=== PATIENT | female | born 1980 | race Caucasian/White ===

== ENCOUNTER 2018-01-15 18:37 | Emergency (ER) | payer OTHER ==
--- OUTSIDE RECORDS SUMMARY | 2018-01-15 18:39 | XMS REPORT ---
:1980 Author Organization eClinicalWorks Care Team Providers Name Role Phone Sowmya Schroeder Provider Role Unavailable Allergies, Adverse Reactions, Alerts Substance Reaction Event Type Augmentin stomach upset Drug Allergy Problems Problem Type Condition Code Onset Dates Condition Status Problem Migraine headache G43.909 Active Problem Sinus problem J34.9 Active Problem Asthma J45.909 Active Assessment Migraine headache G43.909 Active Assessment Bilateral carpal tunnel syndrome G56.03 Active Problem Fever blister B00.1 Active Problem Bilateral carpal tunnel syndrome G56.03 Active Medications Medication Code Code Instructions Start End Status Dosage System Date Date Tramadol HCl [facility] 59474759244 50 MG Orally Active 1 tablet every 6 hrs as needed Triamcinolone & NDC 0 0.025 % June Active 1 Emollient Externally 2017 Twice a day Diclofenac [facility] 65879598308 50 MG Orally Active 1 tablet Potassium Twice a day Acyclovir [facility] 87067505805 400 mg orally Active two tab BID Singulair [facility] 64152432540 10 MG Orally Active 1 tablet Once a day in the evening Butalbital-Aspiri [facility] 52125423869 50-325-40 MG September Active 1 capsule n-Caffeine Orally every 4 19, as needed hrs 2018 Results No Known Results Summary Purpose eClinicalWorks Submission
--- OUTSIDE RECORDS SUMMARY | 2018-01-15 18:39 | XMS REPORT ---
:1980 Author Organization eClinicalWorks Care Team Providers Name Role Phone Sowmya Schroeder Provider Role Unavailable Allergies, Adverse Reactions, Alerts Substance Reaction Event Type Augmentin stomach upset Drug Allergy Problems Problem Type Condition Code Onset Dates Condition Status Assessment Seasonal allergies J30.2 Active Assessment Chronic tension-type headache, G44.221 Active intractable Problem Seasonal allergies J30.2 Active Problem Sinus problem J34.9 Active Problem Chronic tension-type headache, G44.221 Active intractable Problem Asthma J45.909 Active Problem Fever blister B00.1 Active Problem Bilateral carpal tunnel syndrome G56.03 Active Medications Medication Code Code Instructions Start End Status Dosage System Date Date Diclofenac [facility] 67085803627 50 MG Orally Active 1 tablet Potassium Twice a day Amoxicillin [facility] 63723853704 875 MG Orally October Active 1 tablet every 12 hrs 2017 Flonase [facility] 09136282765 50 MCG/ACT August 27, Active 1 spray in Nasally Once a 2018 each nostril day Tramadol HCl [facility] 42328295980 50 MG Orally Active 1 tablet as every 6 hrs needed Singulair [facility] 72097338984 10 MG Orally Active 1 tablet in Once a day the evening Triamcinolone [facility] 29706993896 0.1 % August 08, Active 1 application Acetonide Externally 2018 to affected Twice a day area Ortho Tri-Cyclen [facility] 25599257236 0.18/0.215/0.25 August 08, Active 1 tablet Lo MG-25 MCG 2018 Orally Once a day Acyclovir ND 81547879164 400 mg orally Active two tab BID Rmfivqaaur-MNF-Q [facility] 92253519671 50-325-40 MG Nov 26Jan Active 1 capsule as affeine Orally every 6 2017 19, needed hours 2018 Results No Known Results Summary Purpose eClinicalWorks Submission
--- OUTSIDE RECORDS SUMMARY | 2018-01-15 18:39 | XMS REPORT ---
:1980 Author Organization eClinicalWorks Care Team Providers Name Role Phone Kyaw Mae Provider Role Unavailable Allergies No Known Allergies Problems Problem Type Condition Code Onset Dates Condition Status Assessment Migraine headache G43.909 Active Problem Sinus problem J34.9 Active Problem Fever blister B00.1 Active Problem Seasonal allergies J30.2 Active Problem Migraine headache G43.909 Active Assessment Seasonal allergies J30.2 Active Problem Bilateral carpal tunnel syndrome G56.03 Active Problem Asthma J45.909 Active Medications Medication Code Code Instructions Start End Status Dosage System Date Date Flonase [facility] 52538448543 50 MCG/ACT August 27, Active 1 spray in Nasally Once a 2018 each nostril day Triamcinolone [facility] 32309608518 0.1 % August 08, Active 1 application Acetonide Externally 2018 to affected Twice a day area Acyclovir [facility] 31694286743 400 mg orally Active two tab BID Loratadine-D [facility] 56103172396 5-120 MG Orally August 27September Active 1 tablet as 12HR every 12 hrs 2017 20, needed 2018 Diclofenac [facility] 93942192256 50 MG Orally Active 1 tablet Potassium Twice a day Singulair [facility] 57683964985 10 MG Orally Active 1 tablet in Once a day the evening Butalbital-Aspir [facility] 04491023901 50-325-40 MG September Active 1 capsule as in-Caffeine Orally every 4 19, needed hrs 2017 Ortho Tri-Cyclen [facility] 43900936638 0.18/0.215/0.25 August 08, Active 1 tablet Lo MG-25 MCG 2018 Orally Once a day Tramadol HCl ND 23596016195 50 MG Orally Active 1 tablet as every 6 hrs needed Results No Known Results Summary Purpose eClinicalWorks Submission
--- OUTSIDE RECORDS SUMMARY | 2018-01-15 18:39 | XMS REPORT ---
:1980 Author Organization eClinicalWorks Care Team Providers Name Role Phone Sowmya Schroeder Provider Role Unavailable Allergies, Adverse Reactions, Alerts Substance Reaction Event Type Augmentin stomach upset Drug Allergy Problems Problem Type Condition Code Onset Dates Condition Status Assessment Acute recurrent frontal sinusitis J01.11 Active Assessment Cough R05 Active Problem Sinus problem J34.9 Active Problem Fever blister B00.1 Active Problem Seasonal allergies J30.2 Active Problem Migraine headache G43.909 Active Problem Bilateral carpal tunnel syndrome G56.03 Active Problem Asthma J45.909 Active Medications Medication Code Code Instructions Start End Status Dosage System Date Date Ortho Tri-Cyclen [facility] 05293600430 0.18/0.215/0.25 August 08, Active 1 tablet Lo MG-25 MCG 2017 Orally Once a day Amoxicillin [facility] 61677922271 875 MG Orally October Active 1 tablet every 12 hrs 2017 Singulair [facility] 97637245646 10 MG Orally Active 1 tablet in Once a day the evening Tramadol HCl ND 95735894893 50 MG Orally Active 1 tablet as every 6 hrs needed Flonase ND 15764155580 50 MCG/ACT August 27, Active 1 spray in Nasally Once a 2018 each nostril day Triamcinolone [facility] 20085578624 0.1 % August 08, Active 1 application Acetonide Externally 2018 to affected Twice a day area Acyclovir ND 23846676175 400 mg orally Active two tab BID Diclofenac ND 34402450978 50 MG Orally Active 1 tablet Potassium Twice a day Results Name Result Date Reference Range Unit Abnormality Flag STREP A RAPID ----Result Neg [id number] Summary Purpose eClinicalWorks Submission
--- OUTSIDE RECORDS SUMMARY | 2018-01-15 18:39 | XMS REPORT ---
:1980 Author Organization eClinicalWorks Care Team Providers Name Role Phone Sowmya Schroeder Provider Role Unavailable Allergies, Adverse Reactions, Alerts Substance Reaction Event Type Augmentin stomach upset Drug Allergy Problems Problem Type Condition Code Onset Dates Condition Status Problem Migraine headache G43.909 Active Problem Sinus problem J34.9 Active Problem Asthma J45.909 Active Assessment Encounter for BCP ( control Z30.011 Active pills) initial prescription Assessment Eczema, unspecified type L30.9 Active Problem Fever blister B00.1 Active Problem Bilateral carpal tunnel syndrome G56.03 Active Medications Medication Code Code Instructions Start End Status Dosage System Date Date Butalbital-Aspir [facility] 48411211422 50-325-40 MG September Active 1 capsule as in-Caffeine Orally every 4 19, needed hrs [address] [facility] 97076599864 0.1 % August 08, Active 1 application Acetonide Externally 2018 to affected Twice a day area Diclofenac [facility] 62881345221 50 MG Orally Active 1 tablet Potassium Twice a day Singulair [facility] 01873294704 10 MG Orally Active 1 tablet in Once a day the evening Ortho Tri-Cyclen [facility] 64137722594 0.18/0.215/0.25 August 08, Active 1 tablet Lo MG-25 MCG 2018 Orally Once a day Acyclovir [facility] 80510335250 400 mg orally Active two tab BID Tramadol HCl [facility] 95047462454 50 MG Orally Active 1 tablet as every 6 hrs needed Results Name Result Date Reference Range Unit Abnormality Flag TEST URINE ----RESULTS N [id number] Summary Purpose eClinicalWorks Submission
--- NOTE | 2018-01-15 19:36 | EDPHYS ---
Physician Documentation [facility] Name: Julia Vargas Age: 37 yrs Sex: Female : 1980 Arrival Date: 01/15/2018 Time: 18:40 Bed 30 Private MD: Marley Schroeder ED Physician Noe Patel HPI: 01/15 19:32 This 37 yrs old Female presents to ER via Ambulatory with complaints of Pain rn With Urination. 19:32 The patient presents with urinary symptoms, dysuria, frequency, urgency. Onset: The rn symptoms/episode began/occurred 1 week(s) ago. Modifying factors: The symptoms are alleviated by nothing, the symptoms are aggravated by urinating. Associated signs and symptoms: The patient has no apparent associated signs or symptoms, Pertinent negatives: diarrhea, fever, vaginal bleeding. Severity of symptoms: At their worst the symptoms were mild, in the emergency department the symptoms are unchanged. The patient has not experienced similar symptoms in the past. Reports increased urinary frequency, urgency, no fever, not better with OTC yeast infection treatment, no abd pain. No diarrhea/vomiting/chills. States thinks has UTI, not able to get into pcp office due to her schedule. . 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 - Social history:: Smoking status: Patient/guardian denies using tobacco. - Ebola Screening: : Patient negative for fever greater than or equal to 101.5 degrees Fahrenheit, and additional compatible Ebola Virus Disease symptoms Patient denies exposure to infectious person Patient denies travel to an Ebola-affected area in the 21 days before illness onset No symptoms or risks identified at this time. - Family history:: not pertinent. - Hospitalizations: : No recent hospitalization is reported. ROS: 19:32 Constitutional: Negative for fever, chills, and weight loss, Eyes: Negative for injury, rn pain, redness, and discharge, Cardiovascular: Negative for chest pain, palpitations, and edema, Respiratory: Negative for shortness of breath, cough, wheezing, and pleuritic chest pain, Abdomen/GI: Negative for abdominal pain, nausea, vomiting, diarrhea, and constipation, Back: Negative for injury and pain, : Negative for injury, bleeding, discharge, and swelling, MS/Extremity: Negative for injury and deformity, Skin: Negative for injury, rash, and discoloration, Neuro: Negative for headache, weakness, numbness, tingling, and seizure. Exam: 19:32 Constitutional: This is a well developed, well nourished patient who is awake, alert, rn and in no acute distress. Eyes: Pupils equal round and reactive to light ENT: MMM Abdomen/GI: Soft, non-tender, with normal bowel sounds. No distension, No guarding or rebound. No evidence of tenderness throughout. Back: No spinal tenderness. No costovertebral tenderness. Full range of motion. Skin: Warm, dry with normal turgor. Normal color with no rashes, no lesions, and no evidence of cellulitis. MS/ Extremity: Pulses equal, no cyanosis. Neurovascular intact. Full, normal range of motion. Equal circumference. Neuro: Awake and alert, GCS 15, oriented to person, place, time, and situation. Motor strength 5/5 in all extremities. Sensory grossly intact. Vital Signs: 18:50 BP 127 / 76; Pulse 75; Resp 16; Temp 97.8; Pulse Ox 100% ; Weight 129.27 kg; Height 5 bp ft. 7 in. (170.18 cm); 19:48 BP 120 / 77; Pulse 77; Resp 18; Pulse Ox 100% on R/A; tl3 18:50 Body Mass Index 44.64 (129.27 kg, 170.18 cm) bp MDM: 19:04 Patient medically screened. rn 19:32 Differential diagnosis: urinary tract infection, urethritis, yeast infection, rn dehydration. Data reviewed: vital signs, nurses notes, lab test result(s), and as a result, I will discharge patient. Counseling: I had a detailed discussion with the patient and/or guardian regarding: the historical points, exam findings, and any diagnostic results supporting the discharge/admit diagnosis, lab results, the need for outpatient follow up, to return to the emergency department if symptoms worsen or persist or if there are any questions or concerns that arise at home. Special discussion: I discussed with the patient/guardian in detail that at this point there is no indication for admission to the hospital. It is understood, however, that if the symptoms persist or worsen the patient needs to return immediately for re-evaluation. 01/15 19:05 Order name: Urine Dipstick--Ancillary (enter results) mt 01/15 19:05 Order name: Urine --Ancillary (enter results) wv Administered Medications: No medications were administered Disposition: 01/15/18 19:35 Discharged to Home. Impression: Urethritis and urethral syndrome, Urinary tract infection, site not specified. - Condition is Stable. - Discharge Instructions: Urethritis, Adult, Urinary Tract Infection, Adult. - Prescriptions for Diflucan 150 mg Oral Tablet - take 1 tablet by ORAL route one time for 1 day; 1 tablet. Pyridium 200 mg Oral Tablet - take 1 tablet by ORAL route every 8 hours for 3 days; 9 tablet. Macrobid 100 mg Oral Capsule - take 1 capsule by ORAL route every 12 hours for 10 days; 20 capsule. - Medication Reconciliation Form, Thank You Letter, Antibiotic Education, Prescription Opioid Use form. - Follow up: Private Physician; When: As needed; Reason: Recheck today's complaints, Re-evaluation by your physician. - Problem is new. - Symptoms are unchanged. Signatures: Dispatcher [employer] EDMS Noe Patel MD MD rn Peltier, Brian, RN RN bp Lowrey, Tammy, RN RN tl3 Corrections: (The following items were deleted from the chart) 19:52 19:35 01/15/2018 19:35 Discharged to Home. Impression: Urethritis and urethral tl3 syndrome; Urinary tract infection, site not specified. Condition is Stable. Forms are Medication Reconciliation Form, Thank You Letter, Antibiotic Education, Prescription Opioid Use. Follow up: Private Physician; When: As needed; Reason: Recheck today's complaints, Re-evaluation by your physician. Problem is new. Symptoms are unchanged. rn
--- NOTE | 2018-01-15 19:36 | ER ---
Nurse's Notes [facility] Name: Julia Vargas Age: 37 yrs Sex: Female : 1980 Arrival Date: 01/15/2018 Time: 18:40 Bed 30 Private MD: Marley Schroeder Diagnosis: Urethritis and urethral syndrome;Urinary tract infection, site not specified Presentation: 01/15 18:49 Presenting complaint: Patient states: I THINK I'VE GOT A UTI. I THOUGHT IT WAS A YEAST bp INFECTION, BUT THE CREAM DIDN'T MAKE IT BETTER. Transition of care: patient was not received from another setting of care. Onset of symptoms was January 08, 2018. Risk Assessment: Do you want to hurt yourself or someone else? Patient reports no desire to harm self or others. Initial Sepsis Screen: Does the patient meet any 2 criteria? No. Patient's initial sepsis screen is negative. Does the patient have a suspected source of infection? No. Patient's initial sepsis screen is negative. Care prior to arrival: None. 18:49 Method Of Arrival: Ambulatory bp 18:49 Acuity: GILBERTO 4 bp Triage Assessment: 18:50 General: Appears in no apparent distress. comfortable, obese, Behavior is calm, bp cooperative, appropriate for age. Pain: Complains of pain in pelvis. 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 - Social history:: Smoking status: Patient/guardian denies using tobacco. - Ebola Screening: : Patient negative for fever greater than or equal to 101.5 degrees Fahrenheit, and additional compatible Ebola Virus Disease symptoms Patient denies exposure to infectious person Patient denies travel to an Ebola-affected area in the 21 days before illness onset No symptoms or risks identified at this time. - Family history:: not pertinent. - Hospitalizations: : No recent hospitalization is reported. Screenin:27 Abuse screen: Denies threats or abuse. Nutritional screening: No deficits noted. tl3 Tuberculosis screening: No symptoms or risk factors identified. Fall Risk None identified. Assessment: 19:27 General: Appears in no apparent distress. obese, well groomed, well developed, well tl3 nourished, Behavior is calm, cooperative, appropriate for age. Pain: Complains of pain in pelvis. Neuro: No deficits noted. Level of Consciousness is awake, alert, obeys commands, Oriented to person, place, time, situation, Appropriate for age. Cardiovascular: Patient's skin is warm and dry. Respiratory: Airway is patent Respiratory effort is even, unlabored, Respiratory pattern is regular, symmetrical, Breath sounds are clear bilaterally. GI: : Urine is clear. EENT: No signs and/or symptoms were reported regarding the EENT system. Derm: No signs and/or symptoms reported regarding the dermatologic system. Musculoskeletal: No signs and/or symptoms reported regarding the musculoskeletal system. 19:48 Reassessment: Patient appears in no apparent distress at this time. No changes from tl3 previously documented assessment. Patient and/or family updated on plan of care and expected duration. Pain level reassessed. Patient is alert, oriented x 3, equal unlabored respirations, skin warm/dry/pink. Vital Signs: 18:50 BP 127 / 76; Pulse 75; Resp 16; Temp 97.8; Pulse Ox 100% ; Weight 129.27 kg; Height 5 bp ft. 7 in. (170.18 cm); 19:48 BP 120 / 77; Pulse 77; Resp 18; Pulse Ox 100% on R/A; tl3 18:50 Body Mass Index 44.64 (129.27 kg, 170.18 cm) bp ED Course: 18:40 Patient arrived in ED. as 18:40 Marley Schroeder is Private Physician. as 18:50 Triage completed. bp 18:50 Arm band placed on right wrist. bp 19:04 Noe Patel MD is Attending Physician. rn 19:27 Darya Hagen, BRAYAN is Primary Nurse. tl3 19:27 Patient has correct armband on for positive identification. tl3 19:27 No provider procedures requiring assistance completed. Patient did not have IV access tl3 during this emergency room visit. Administered Medications: No medications were administered Outcome: 19:35 Discharge ordered by . rn 19:48 Discharged to home ambulatory. tl3 19:48 Condition: stable 19:48 Discharge instructions given to patient, Instructed on discharge instructions, follow up and referral plans. medication usage, Demonstrated understanding of instructions, follow-up care, medications, Prescriptions given X 3. 19:52 Patient left the ED. tl3 Signatures: Darlene Chavez Roman, MD MD rn Peltier, Brian, RN RN bp Lowrey, Tammy, RN RN tl3
[2018-01-15 19:53] LABS: Urine Blood TRACE (NEG); Urine Glucose NEGATIVE (NEG); Urine Protein NEGATIVE (NEG); Urine pH 5.5 (5.0-7.0)
== END 2018-01-15 19:52 | disposition home or self-care (01) ==
LOC: ER 18:37
DX: N39.0 Urinary tract infection, site not specified (principal); N34.3 Urethral syndrome, unspecified; Z88.1 Allergy status to other antibiotic agents
CPT/HCPCS: 81003; 81025; 99282

== ENCOUNTER 2018-03-18 19:00 | Observation (INO) | payer OTHER, SELFPAY ==
--- OUTSIDE RECORDS SUMMARY | 2018-03-18 19:03 | XMS REPORT ---
[...] End Status Dosage System Date Date Flonase [facility] 53321382218 50 MCG/ACT August 27, Active 1 spray in Nasally Once a 2018 each nostril day Triamcinolone [facility] 44687810601 0.1 % August 08, Active 1 application Acetonide Externally 2018 to affected Twice a day area Acyclovir [facility] 66389164325 400 mg orally Active two tab BID Loratadine-D [facility] 07089951928 5-120 MG Orally August 27September Active 1 tablet as 12HR every 12 hrs 2017 20, needed 2018 Diclofenac [facility] 42641168379 50 MG Orally Active 1 tablet Potassium Twice a day Singulair [facility] 66538677706 10 MG Orally Active 1 tablet in Once a day the evening Butalbital-Aspir [facility] 97462347896 50-325-40 MG September Active 1 capsule as in-Caffeine Orally every 4 19, needed hrs 2017 Ortho Tri-Cyclen [facility] 86288018033 0.18/0.215/0.25 August 08, Active 1 tablet Lo MG-25 MCG 2018 Orally Once a day Tramadol HCl ND 43486707236 50 MG Orally Active 1 tablet as every 6 hrs needed Results No Known Results Summary Purpose eClinicalWorks Submission
--- OUTSIDE RECORDS SUMMARY | 2018-03-18 19:03 | XMS REPORT ---
[...] End Status Dosage System Date Date Diclofenac [facility] 45184176788 50 MG Orally Active 1 tablet Potassium Twice a day Amoxicillin [facility] 15990261737 875 MG Orally October Active 1 tablet every 12 hrs 2017 Flonase [facility] 24592385887 50 MCG/ACT August 27, Active 1 spray in Nasally Once a 2018 each nostril day Tramadol HCl [facility] 31088962645 50 MG Orally Active 1 tablet as every 6 hrs needed Singulair [facility] 13218967088 10 MG Orally Active 1 tablet in Once a day the evening Triamcinolone [facility] 44649245406 0.1 % August 08, Active 1 application Acetonide Externally 2018 to affected Twice a day area Ortho Tri-Cyclen [facility] 86909683907 0.18/0.215/0.25 August 08, Active 1 tablet Lo MG-25 MCG 2018 Orally Once a day Acyclovir ND 24682960924 400 mg orally Active two tab BID Klnrtczaic-JSF-Q [facility] 54744678624 50-325-40 MG Nov 26Jan Active 1 capsule as affeine Orally every 6 2017 19, needed hours 2018 Results No Known Results Summary Purpose eClinicalWorks Submission
--- OUTSIDE RECORDS SUMMARY | 2018-03-18 19:03 | XMS REPORT ---
[...] End Status Dosage System Date Date Butalbital-Aspir [facility] 10247529006 50-325-40 MG September Active 1 capsule as in-Caffeine Orally every 4 19, needed hrs 2018 Triamcinolone [facility] 98015137419 0.1 % August 08, Active 1 application Acetonide Externally 2018 to affected Twice a day area Diclofenac [facility] 29796093751 50 MG Orally Active 1 tablet Potassium Twice a day Singulair [facility] 45079133727 10 MG Orally Active 1 tablet in Once a day the evening Ortho Tri-Cyclen [facility] 79513805694 0.18/0.215/0.25 August 08, Active 1 tablet Lo MG-25 MCG 2018 Orally Once a day Acyclovir [facility] 87795420784 400 mg orally Active two tab BID Tramadol HCl [facility] 23269685241 50 MG Orally Active 1 tablet as every 6 hrs needed Results Name Result Date Reference Range Unit Abnormality Flag TEST URINE ----RESULTS N [id number] Summary Purpose eClinicalWorks Submission
--- OUTSIDE RECORDS SUMMARY | 2018-03-18 19:03 | XMS REPORT ---
[...] Status Dosage System Date Date Tramadol HCl [facility] 95368973420 50 MG Orally Active 1 tablet every 6 hrs as needed Triamcinolone & NDC 0 0.025 % June Active 1 Emollient Externally 2017 Twice a day Diclofenac [facility] 66461040381 50 MG Orally Active 1 tablet Potassium Twice a day Acyclovir [facility] 45090708080 400 mg orally Active two tab BID Singulair [facility] 12826549031 10 MG Orally Active 1 tablet Once a day in the evening Butalbital-Aspiri [facility] 72155605745 50-325-40 MG September Active 1 capsule n-Caffeine Orally every 4 19, as needed hrs 2018 Results No Known Results Summary Purpose eClinicalWorks Submission
--- OUTSIDE RECORDS SUMMARY | 2018-03-18 19:03 | XMS REPORT ---
[...] Status Dosage System Date Date Ortho Tri-Cyclen [facility] [id number] 0.18/0.215/0.25 August 08, Active 1 tablet Lo MG-25 MCG 2017 Orally Once a day Amoxicillin [facility] [id number] 875 MG Orally October Active 1 tablet every 12 hrs 2017 Singulair [facility] 36417024139 10 MG Orally Active 1 tablet in Once a day the evening Tramadol HCl ND 20665672143 50 MG Orally Active 1 tablet as every 6 hrs needed Flonase ND 76341665519 50 MCG/ACT August 27, Active 1 spray in Nasally Once a 2018 each nostril day Triamcinolone [facility] 93141344016 0.1 % August 08, Active 1 application Acetonide Externally 2018 to affected Twice a day area Acyclovir ND 73095731656 400 mg orally Active two tab BID Diclofenac ND 87334122835 50 MG Orally Active 1 tablet Potassium Twice a day Results Name Result Date Reference Range Unit Abnormality Flag STREP A RAPID ----Result Neg [id number] Summary Purpose eClinicalWorks Submission
[2018-03-18] MEDS ORDERED: FAMOTIDINE 20 MG/2 ML VIAL IV ONE (19:47)
[2018-03-18] MEDS ORDERED: MORPHINE 4 MG/ML SYR ONE ×2 (19:47→20:48)
[2018-03-18] MEDS ORDERED: NA CHLORIDE 0.9% 1,000 ML ONE ×2 (19:47→21:06)
[2018-03-18] MEDS ORDERED: ONDANSETRON 4 MG/2 ML VIAL ONE (19:47)
[2018-03-18 19:54] LABS: Absolute Lymphocytes (CBC) 1.3 K/uL (0.7-4.9); Absolute Monocytes 0.7 K/uL (0.1-1.3); Absolute Neutrophil 9.1 K/uL (1.8-8.0); Basophils % 0.2 % (0-1.3); Eosinophils % 1.5 % (0-4.4); Hematocrit 37.6 % (36.0-45.0); Lymphocytes % 11.4 % (15.3-44.8); MCH 28.8 pg (27.0-35.0); MPV 9.4 fL (7.6-11.3); RBC Red Blood Cell Count 4.32 M/uL (3.86-4.86)
[2018-03-18 20:08] LABS: Protime INR 0.92
[2018-03-18 20:15] LABS: ALT/SGPT 17 U/L (12-78); AST/SGOT 11 U/L (15-37); Albumin 3.3 g/dL (3.4-5.0); Alkaline Phosphatase 64 U/L (45-117); BUN Blood Urea Nitrogen 13 mg/dL (7-18); Bicarbonate 24 mmol/L (21-32); Bilirubin Direct < 0.1 mg/dL (0-0.2); Bilirubin Total 0.2 mg/dL (0.2-1.0); Glucose Level 84 mg/dL (74-106); Lipase 69 U/L (73-393); Magnesium 1.9 mg/dL (1.8-2.4); NT PRO-BNP 207 pg/mL (<125); Potassium 3.7 mmol/L (3.5-5.1); Protein, Total 7.8 g/dL (6.4-8.2); Sodium Level 137 mmol/L (136-145); Troponin (Emerg Dept Use Only) < 0.02 ng/mL (0.0-0.045)
[2018-03-18 21:04] LABS: Urine Blood TRACE (NEG); Urine Glucose NEGATIVE (NEG); Urine Protein NEGATIVE (NEG); Urine Specific Gravity >1.030 (1.005-1.030); Urine pH 5.5 (5.0-7.0)
[2018-03-18] MEDS ORDERED: CIPROFLOXACIN 400mg IV 400 MG/200 ML BAG IV ONE (21:06)
[2018-03-18] MEDS ORDERED: METRONIDAZOLE 500mg IVPB 500 MG/100 ML BAG IV ONE (21:07)
--- NOTE | 2018-03-18 22:05 | RAD REPORT ---
EXAM DESCRIPTION: CT - Abdomen Pelvis W Contrast - 03/18/2018 9:41 pm CLINICAL HISTORY: Left upper quadrant pain, left lower quadrant pain, fever COMPARISON: None. TECHNIQUE: Biphasic, helical CT imaging of the abdomen and pelvis was performed following 100 ml non -ionic IV contrast. Oral contrast was given. All CT scans are performed using dose optimization technique as appropriate and may include automated exposure control or mA/KV adjustment according to patient size. FINDINGS: No suspicious findings in the lung bases. The liver, spleen, and pancreas show no suspicious findings. Gallbladder and biliary tree are also wi thout suspicious finding. Symmetric renal function is seen with no hydronephrosis or suspicious renal mass. No pyelonephritis o r acute renal parenchymal process. No urinary bladder abnormality. Uterus and ovaries within normal l imits. No dilated bowel loops or bowel wall thickening. No appendicitis findings. Small right lower quadrant mesenteric lymph nodes are present. No free air, free fluid or inflammatory stranding. No mass or b ulky lymphadenopathy. Patient has a small fat only umbilical hernia. No adrenal abnormality. No suspicious bony findings. IMPRESSION: Contrast enhanced CT abdomen and pelvis showing no significant or suspicious finding. A few small mesenteric lymph nodes are present in the right lower quadrant. No bulky lymphadenopathy. Significance of the lymph node is doubtful given the patient's left-sided symptoms.
--- NOTE | 2018-03-18 22:47 | ER ---
Nurse's Notes [facility] Name: Julia Vargas Age: 37 yrs Sex: Female : 1980 Arrival Date: 03/18/2018 Time: 19:03 Bed 26 Private MD: Marley Schroeder Diagnosis: Abdominal tenderness-intractable;Vomiting Presentation: 03/18 19:05 Presenting complaint: Patient states: i have this sharp pain on the L side of my hj abdomen; denies nausea and vomiting; denies diarrhea; reports fever and chills; pain is 10/10;. Transition of care: patient was not received from another setting of care. Onset of symptoms was March 18, 2018. Risk Assessment: Do you want to hurt yourself or someone else? Patient reports no desire to harm self or others. Initial Sepsis Screen: Does the patient meet any 2 criteria? No. Patient's initial sepsis screen is negative. Does the patient have a suspected source of infection? No. Patient's initial sepsis screen is negative. Care prior to arrival: None. 19:05 Method Of Arrival: Ambulatory 19:05 Acuity: GILBERTO 3 Triage Assessment: 19:07 General: Appears in no apparent distress. uncomfortable, obese, Behavior is calm, hj cooperative, appropriate for age. Pain: Complains of pain in abdomen. GI: Reports lower abdominal pain, upper abdominal pain. DIRECTOR STRATEGY: 19:08 LMP N/A - control method Historical: - Allergies: 19:07 Augmentin; hj - Home Meds: 19:07 Clair Oral [Active]; Singulair Oral [Active]; hj - PMHx: 19:07 allergy; - PSHx: 19:07 None; hj - Immunization history:: Adult Immunizations up to date. - Social history:: Smoking status: Patient/guardian denies using tobacco, Patient uses alcohol, occasionally. - Ebola Screening: : Patient negative for fever greater than or equal to 101.5 degrees Fahrenheit, and additional compatible Ebola Virus Disease symptoms Patient denies exposure to infectious person Patient denies travel to an Ebola-affected area in the 21 days before illness onset. - Family history:: not pertinent. Screenin:07 Abuse screen: Denies threats or abuse. Denies injuries from another. Nutritional hj screening: No deficits noted. Tuberculosis screening: No symptoms or risk factors identified. Fall Risk None identified. Assessment: 19:07 GI: Bowel sounds present X 4 quads. Abd is soft Abdomen is tender to palpation. hj 19:20 General: Appears in no apparent distress. uncomfortable, Behavior is anxious, crying. ao Pain: Complains of pain in abdomen. Neuro: Level of Consciousness is awake, alert, obeys commands, Oriented to person, place, time, situation, Appropriate for age Moves all extremities. Full function Speech is normal, Facial symmetry appears normal. Cardiovascular: Heart tones S1 S2 Capillary refill < 3 seconds Pulses are all present. Respiratory: Airway is patent Respiratory effort is even, unlabored, Respiratory pattern is regular, symmetrical, Breath sounds are clear bilaterally. GI: Abdomen is round Bowel sounds present X 4 quads. Abd is soft Abdomen is tender to palpation Reports upper abdominal pain, nausea. : Urine is clear. EENT: No signs and/or symptoms were reported regarding the EENT system. EENT: No signs and/or symptoms were reported regarding the EENT system. Derm: No signs and/or symptoms reported regarding the dermatologic system. Musculoskeletal: Range of motion: intact in all extremities. 20:25 Reassessment: Patient appears in no apparent distress at this time. Patient and/or ao family updated on plan of care and expected duration. Pain level reassessed. Patient is alert, oriented x 3, equal unlabored respirations, skin warm/dry/pink. Patient pain has come back. Dr Olivas has been notified. 20:34 Reassessment: Received an verbal order from Dr Olivas to repeat morphine for patient. ao See [facility] for orders. 21:34 Reassessment: Patient appears in no apparent distress at this time. Patient and/or ao family updated on plan of care and expected duration. Pain level reassessed. Patient is alert, oriented x 3, equal unlabored respirations, skin warm/dry/pink. Patient off for CT. General:. 22:38 Reassessment: Patient appears in no apparent distress at this time. Patient and/or ao family updated on plan of care and expected duration. Pain level reassessed. Waiting on Dispo orders. Dr Olivas was notified of patient being hurting again. DR Olivas is reviewing CT at this time. 23:25 Reassessment: Patient is now ER hold See [facility] for future documentation. ao 23:25 Reassessment: Patient move to room 26 in the ER. ao Vital Signs: 19:08 BP 118 / 64; Pulse 82; Resp 18; Temp 99.3; Pulse Ox 100% on R/A; Weight 131.54 kg; hj Height 5 ft. 7 in. (170.18 cm); Pain 10/10; 20:30 BP 122 / 61; Pulse 80; Resp 16; Pulse Ox 100% on R/A; ao 21:34 BP 116 / 62; Pulse 82; Resp 16; Pulse Ox 100% on R/A; Pain 0/10; ao 19:08 Body Mass Index 45.42 (131.54 kg, 170.18 cm) hj ED Course: 19:03 Patient arrived in ED. sb2 19:03 Marley Schroeder is Private Physician. sb2 19:06 Triage completed. hj 19:07 Arm band placed on right wrist. hj 19:09 Patient has correct armband on for positive identification. Placed in gown. Bed in low hj position. Call light in reach. Side rails up X 1. 19:12 Quan Olivas MD is Attending Physician. maribell 19:16 Charly Lanier RN is Primary Nurse. ao 19:20 conveyor monitor on. Pulse ox on. NIBP on. ao 19:31 Inserted saline lock: 20 gauge in right antecubital area, using aseptic technique. ao ,using aseptic technique. Ultrasound guided Blood collected. 21:41 CT Abd/Pelvis - W/Contrast In Process Unspecified. EDMS 21:45 XRAY Chest (1 view) In Process Unspecified. EDMS 22:46 Volodymyr Miller MD is Hospitalizing Provider. maribell 23:36 Report given to BRAYAN Kelly. ao 23:36 No provider procedures requiring assistance completed. Patient admitted, IV remains in ao place. 03/19 08:09 Ultrasound completed. Patient taken to ultrasound. Patient moved back from ultrasound. aa4 Administered Medications: 03/18 19:44 Drug: morphine 4 mg Route: IVP; Site: right antecubital; ao 20:36 Follow up: Response: No adverse reaction; Pain is decreased ao 19:44 Drug: Zofran 4 mg Route: IVP; Site: right antecubital; ao 20:36 Follow up: Response: No adverse reaction ao 19:45 Drug: NS 0.9% 1000 ml Route: IV; Rate: 1 bolus; Site: right antecubital; ao 22:29 Follow up: IV Status: Completed infusion; IV Intake: 1000ml ao 19:45 Drug: Pepcid 20 mg Route: IVP; Site: right antecubital; ao 20:36 Follow up: Response: No adverse reaction ao 20:51 Drug: morphine 4 mg Route: IVP; Site: right antecubital; ao 22:28 Follow up: Response: No adverse reaction ao 21:03 Drug: NS 0.9% 1000 ml Route: IV; Rate: 1 bolus; Site: right antecubital; ao 22:27 Follow up: IV Status: Completed infusion; IV Intake: 1000ml ao 21:03 Drug: Cipro 400 mg Volume: 200 ml; Route: IVPB; Infused Over: 60 mins; Site: right ao antecubital; 22:28 Follow up: IV Status: Completed infusion; IV Intake: 200ml ao 21:03 Drug: Flagyl 500 mg Volume: 100 ml; Route: IVPB; Rate: 200 ml/hr; Infused Over: 30 ao mins; Site: right antecubital; 22:28 Follow up: IV Status: Completed infusion; IV Intake: 50ml ao Intake: 22:27 IV: 1000ml; Total: 1000ml. ao 22:28 IV: 200ml; Total: 1200ml. ao 22:28 IV: 50ml; Total: 1250ml. ao 22:29 IV: 1000ml; Total: 2250ml. ao Outcome: 22:46 Decision to Hospitalize by Provider. maribell 23:36 Admitted to ER Hold. Please see [facility] for further documentation. ao 23:36 Condition: stable 23:36 Discharge instructions given to patient, Instructed on the need for admit. 03/19 12:20 Admitted to Med/surg accompanied by nurse, family with patient, via wheelchair, room ed1 214, with chart, Report called to BRAYAN Huddleston Condition: stable Discharge instructions given to patient, family, Instructed on the need for admit, Demonstrated understanding of instructions. 12:21 Patient left the ED. Signatures: Dispatcher [employer] EDNY Quan Olivas MD MD cha Frazier, Amanda aa4 Makenzie Gasca RN RN Birgit Nolasco, SPECIAL SYSTEMS TECHNICIAN SPECIAL SYSTEMS TECHNICIAN ed1 Nader Muñiz RN RN Charly Lanier RN RN ao Billeau, Michelle sb2 Corrections: (The following items were deleted from the chart) 03/18 19:10 19:08 Pulse 82bpm; Resp 18bpm; Pulse Ox 100% RA; Temp 99.3F; 131.54 kg; Height 5 ft. 7 hj in.; BMI: 45.4; Pain 01/16; hj
--- NOTE | 2018-03-18 22:47 | EDPHYS ---
Physician Documentation [facility] Name: Julia Vargas Age: 37 yrs Sex: Female : 1980 Arrival Date: 03/18/2018 Time: 19:03 Bed 26 Private MD: Marley Schroeder ED Physician Quan Olivas HPI: 03/18 19:33 This 37 yrs old Female presents to ER via Ambulatory with complaints of maribell Abdominal Pain. 19:33 The patient presents with abdominal pain. Onset: The symptoms/episode began/occurred maribell just prior to arrival. The symptoms do not radiate. Associated signs and symptoms: none. Modifying factors: The symptoms are alleviated by nothing, the symptoms are aggravated by nothing. Severity of pain: At its worst the pain was moderate in the emergency department the pain is unchanged. The patient has not experienced similar symptoms in the past. 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 - Social history:: Smoking status: Patient/guardian denies using tobacco, Patient uses alcohol, occasionally. - Ebola Screening: : Patient negative for fever greater than or equal to 101.5 degrees Fahrenheit, and additional compatible Ebola Virus Disease symptoms Patient denies exposure to infectious person Patient denies travel to an Ebola-affected area in the 21 days before illness onset. - Family history:: not pertinent. ROS: 19:33 Constitutional: Negative for fever, chills, and weight loss, Eyes: Negative for injury, maribell pain, redness, and discharge, ENT: Negative for injury, pain, and discharge, Neck: Negative for injury, pain, and swelling, Cardiovascular: Negative for chest pain, palpitations, and edema, Respiratory: Negative for shortness of breath, cough, wheezing, and pleuritic chest pain, Back: Negative for injury and pain, : Negative for injury, bleeding, discharge, and swelling, MS/Extremity: Negative for injury and deformity, Skin: Negative for injury, rash, and discoloration, Neuro: Negative for headache, weakness, numbness, tingling, and seizure, Psych: Negative for depression, anxiety, suicide ideation, homicidal ideation, and hallucinations, Allergy/Immunology: Negative for hives, rash, and allergies, Endocrine: Negative for neck swelling, polydipsia, polyuria, polyphagia, and marked weight changes, Hematologic/Lymphatic: Negative for swollen nodes, abnormal bleeding, and unusual bruising. 19:33 Abdomen/GI: Positive for abdominal pain, of the epigastric area, left upper quadrant and left lower quadrant. Exam: 19:33 Head/Face: Normocephalic, atraumatic. Eyes: Pupils equal round and reactive to light, maribell extra-ocular motions intact. Lids and lashes normal. Conjunctiva and sclera are non-icteric and not injected. Cornea within normal limits. Periorbital areas with no swelling, redness, or edema. ENT: Nares patent. No nasal discharge, no septal abnormalities noted. Tympanic membranes are normal and external auditory canals are clear. Oropharynx with no redness, swelling, or masses, exudates, or evidence of obstruction, uvula midline. Mucous membranes moist. Neck: Trachea midline, no thyromegaly or masses palpated, and no cervical lymphadenopathy. Supple, full range of motion without nuchal rigidity, or vertebral point tenderness. No Meningismus. Chest/axilla: Normal chest wall appearance and motion. Nontender with no deformity. No lesions are appreciated. Cardiovascular: Regular rate and rhythm with a normal S1 and S2. No gallops, murmurs, or rubs. Normal PMI, no JVD. No pulse deficits. Respiratory: Lungs have equal breath sounds bilaterally, clear to auscultation and percussion. No rales, rhonchi or wheezes noted. No increased work of breathing, no retractions or nasal flaring. Back: No spinal tenderness. No costovertebral tenderness. Full range of motion. Female : Normal external genitalia. Skin: Warm, dry with normal turgor. Normal color with no rashes, no lesions, and no evidence of cellulitis. MS/ Extremity: Pulses equal, no cyanosis. Neurovascular intact. Full, normal range of motion. Neuro: Awake and alert, GCS 15, oriented to person, place, time, and situation. Cranial nerves II-XII grossly intact. Motor strength 5/5 in all extremities. Sensory grossly intact. Cerebellar exam normal. Normal gait. Psych: Awake, alert, with orientation to person, place and time. Behavior, mood, and affect are within normal limits. 19:33 Cardiovascular: Rate: normal, Rhythm: regular, Pulses: no pulse deficits are appreciated, Heart sounds: normal, Edema: is not appreciated. 19:33 Abdomen/GI: Inspection: distension, Bowel sounds: normal, Palpation: moderate abdominal tenderness, in the epigastric area, left upper quadrant and left lower quadrant, Liver: no appreciated palpable abnormalities, Hernia: not appreciated. 22:42 Musculoskeletal/extremity: DVT Exam: No signs of deep vein thrombosis. no pain, no maribell swelling, no tenderness, negative Homans' sign noted on exam, no appreciated bluish discoloration, no erythema, no increased warmth. Vital Signs: 19:08 BP 118 / 64; Pulse 82; Resp 18; Temp 99.3; Pulse Ox 100% on R/A; Weight 131.54 kg; hj Height 5 ft. 7 in. (170.18 cm); Pain 10/10; 20:30 BP 122 / 61; Pulse 80; Resp 16; Pulse Ox 100% on R/A; ao 21:34 BP 116 / 62; Pulse 82; Resp 16; Pulse Ox 100% on R/A; Pain 0/10; ao 19:08 Body Mass Index 45.42 (131.54 kg, 170.18 cm) hj MDM: 19:12 Patient medically screened. maribell 19:14 Patient medically screened. maribell 19:36 Data reviewed: vital signs, nurses notes, lab test result(s), EKG, radiologic studies, [facility] CT scan, plain films. 03/18 19:33 Order name: Basic Metabolic Panel; Complete Time: 20:40 [facility] 03/18 19:33 Order name: CBC with Diff; Complete Time: 20:40 [facility] 03/18 19:33 Order name: LFT's; Complete Time: 20:40 [facility] 03/18 19:33 Order name: Magnesium; Complete Time: 20:40 [facility] 03/18 19:33 Order name: NT PRO-BNP; Complete Time: 20:40 [facility] 03/18 19:33 Order name: PT-INR; Complete Time: 20:40 [facility] 03/18 19:33 Order name: Troponin (emerg Dept Use Only); Complete Time: 20:40 [facility] 03/18 19:33 Order name: Lipase; Complete Time: 20:40 [facility] 03/18 19:40 Order name: Urine Dipstick--Ancillary (enter results); Complete Time: 21:30 ms 03/18 19:40 Order name: Urine --Ancillary (enter results); Complete Time: 21:30 ms 03/18 23:33 Order name: CBC with Automated Diff EDMS 03/18 23:33 Order name: CBC with Automated Diff EDMS 03/18 23:33 Order name: Comprehensive Metabolic Panel [facility] 03/18 23:33 Order name: Comprehensive Metabolic Panel [facility] 03/18 19:33 Order name: XRAY Chest (1 view) [facility] 03/18 19:33 Order name: EKG; Complete Time: 19:34 [facility] 03/18 19:33 Order name: Cardiac monitoring; Complete Time: 19:35 [facility] 03/18 19:33 Order name: CT Abd/Pelvis - W/Contrast; Complete Time: 22:41 [facility] 03/18 23:33 Order name: CONS Physician Consult [facility] 03/18 23:33 Order name: NPO [facility] 03/18 23:33 Order name: Abdomen Exam Limited EDTX 03/19 09:41 Order name: US [facility] 03/18 19:33 Order name: EKG - Nurse/Tech; Complete Time: 19:35 [facility] 03/18 19:33 Order name: IV Saline Lock; Complete Time: 19:45 [facility] 03/18 19:33 Order name: Labs collected and sent; Complete Time: 19:45 [facility] 03/18 19:33 Order name: O2 Per Protocol; Complete Time: 19:35 [facility] 03/18 19:33 Order name: O2 Sat Monitoring; Complete Time: 19:35 [facility] 03/18 19:33 Order name: Urine Test (obtain specimen); Complete Time: 19:35 [facility] 03/18 19:33 Order name: Urine Dipstick-Ancillary (obtain specimen); Complete Time: 19:34 [facility] Administered Medications: 19:44 Drug: morphine 4 mg Route: IVP; Site: right antecubital; ao 20:36 Follow up: Response: No adverse reaction; Pain is decreased ao 19:44 Drug: Zofran 4 mg Route: IVP; Site: right antecubital; ao 20:36 Follow up: Response: No adverse reaction ao 19:45 Drug: NS 0.9% 1000 ml Route: IV; Rate: 1 bolus; Site: right antecubital; ao 22:29 Follow up: IV Status: Completed infusion; IV Intake: 1000ml ao 19:45 Drug: Pepcid 20 mg Route: IVP; Site: right antecubital; ao 20:36 Follow up: Response: No adverse reaction ao 20:51 Drug: morphine 4 mg Route: IVP; Site: right antecubital; ao 22:28 Follow up: Response: No adverse reaction ao 21:03 Drug: NS 0.9% 1000 ml Route: IV; Rate: 1 bolus; Site: right antecubital; ao 22:27 Follow up: IV Status: Completed infusion; IV Intake: 1000ml ao 21:03 Drug: Cipro 400 mg Volume: 200 ml; Route: IVPB; Infused Over: 60 mins; Site: right ao antecubital; 22:28 Follow up: IV Status: Completed infusion; IV Intake: 200ml ao 21:03 Drug: Flagyl 500 mg Volume: 100 ml; Route: IVPB; Rate: 200 ml/hr; Infused Over: 30 ao mins; Site: right antecubital; 22:28 Follow up: IV Status: Completed infusion; IV Intake: 50ml ao Disposition: 03/18/18 22:46 Hospitalization ordered by Volodymyr Miller for Observation. Preliminary diagnosis are Abdominal tenderness - intractable, Vomiting. - Bed requested for Telemetry/MedSurg (observation). - Status is Observation. ss - Condition is Fair. - Problem is new. - Symptoms have improved. UTI on Admission? No Signatures: Dispatcher [employer] EDTX Miriam Washington RN RN mw Woody, Diana, RN RN dw Anderson, Corey, MD MD cha Smirch, Shelby, RN RN ss Joaquin, Henry, RN RN hj Ortiz, Alex, RN RN ao Corrections: (The following items were deleted from the chart) 22:59 22:46 Hospitalization Ordered by Volodymyr Miller MD for Observation. Preliminary diagnosis is Abdominal tenderness - intractable; Vomiting. Bed requested for Telemetry/MedSurg (observation). Status is Observation. Condition is Fair. Problem is new. Symptoms have improved. UTI on Admission? No. maribell 03/19 11:47 03/18 22:59 03/18/2018 22:46 Hospitalization Ordered by Volodymyr Miller MD for dw Observation. Preliminary diagnosis is Abdominal tenderness - intractable; Vomiting. Bed requested for [facility] ER HOLD. Status is Observation. Condition is Fair. Problem is new. Symptoms have improved. UTI on Admission? No. mw 03/19 12:21 11:47 03/18/2018 22:46 Hospitalization Ordered by Volodymyr Miller MD for Observation. ss Preliminary diagnosis is Abdominal tenderness - intractable; Vomiting. Bed requested for Telemetry/MedSurg (observation). Status is Observation. Condition is Fair. Problem is new. Symptoms have improved. UTI on Admission? No. dw
[2018-03-18] MEDS ORDERED: ACETAMINOPHEN 500 MG TAB PO PRN (23:27)
[2018-03-18] MEDS ORDERED: ONDANSETRON 4 MG/2 ML VIAL IV PRN (23:27)
--- NOTE | 2018-03-18 23:41 | P.HP ---
Certification for Inpatient Patient admitted to: Observation With expected LOS: <2 Midnights Practitioner: I am a practitioner with admitting privileges, knowledge of patient current condition, hospital course, and medical plan of care. Services: Services provided to patient in accordance with Admission requirements found in Title 42 Section 412.3 of the Code of Federal Regulations Patient History Date of Service: 03/18/18 Reason for admission: intractable abdominal pain History of Present Illness: Ms Vargas is a 37 years old woman with history of carpal tunnel syndrome, obesity , who start with nonspecific abdominal pain this afternoon. The pain is diffuse , but mostly located in left lower and upper quadrant. She describe the pain as colicky, 10/10 of intensity. She denied nausea, vomiting or diarrhea associated with. She has never had this pain in the past. The patient also denied fever or chills. In ER lab work remarkable for leukocytosis 11.3K, CT abd/pelvis shows no free air, perforation, no bowel wall thickening or dilation, however, there are a few mesenteric lymph nodes on the right side. Appendix seems to be unremarkable. During her stay in ED, the pain did not improve, she remain afebrile. Allergies amoxicillin [From Augmentin] Allergy (Unverified 01/01/17 08:17) Unknown clavulanic acid [From Augmentin] Allergy (Unverified 01/01/17 08:17) Unknown Home medications list reviewed: Yes - Past Medical/Surgical History -: obesity -: carpal tunnel syndrome Past Surgical History: Reviewed- Non-Contributory - Family History Family History: Reviewed- Non-Contributory - Social History Smoking Status: Former smoker Alcohol use: Yes CD- Drugs: No Place of Residence: Home Review of Systems 10-point ROS is otherwise unremarkable Physical Examination - Physical Exam General: Alert, Acute distress (due to severe abdominal pain) HEENT: Atraumatic, PERRLA, Mucous membr. moist/pink, EOMI, Sclerae nonicteric Neck: Supple, 2+ carotid pulse no bruit, No LAD, Without JVD or thyroid abnormality Respiratory: Clear to auscultation bilaterally, Normal air movement Cardiovascular: Regular rate/rhythm, Normal S1 S2 Gastrointestinal: Normal bowel sounds, Tenderness (left upper and lower quadrant pain) Musculoskeletal: No tenderness Integumentary: No rashes Neurological: Normal speech, Normal strength at 5/5 x4 extr, Normal tone, Normal affect Lymphatics: No axilla or inguinal lymphadenopathy - Studies Laboratory Data (last 24 hrs) 03/18/18 19:45: PT 10.8, INR 0.92 03/18/18 19:45: WBC 11.3 H, Hgb 12.5, Hct 37.6, Plt Count 234 03/18/18 19:45: Sodium 137, Potassium 3.7, BUN 13, Creatinine 0.70, Glucose 84, Magnesium 1.9, Total Bilirubin 0.2, AST 11 L, ALT 17, Alkaline Phosphatase 64, Lipase 69 L Assessment and Plan - Problems (Diagnosis) (1) Abdominal pain Current Visit: Yes Status: Acute Qualifiers: Abdominal location: left upper quadrant Qualified Code(s): R10.12 - Left upper quadrant pain (2) Obesity Current Visit: Yes Status: Acute Qualifiers: Obesity type: unspecified obesity type Obesity classification: unspecified obesity classification Serious obesity comorbidity presence: unspecified whether serious comorbidity present Qualified Code(s): E66.9 - Obesity, unspecified - Plan The patient will be admitted to the hospital due to intractable abdominal pain. At the moment the etiology is not clear. Will keep the patient NPO, order abd US to R/O symptomatic cholelitiasis, Continue pain medication, consult Surgery team for evaluation and recommendations. - Advance Directives Does patient have a Living Will: No Does patient have a Durable POA for Healthcare: No - Code Status/Comfort Care Code Status Assessed: Yes Code Status: Full Code
[2018-03-18] MEDS: NA CHLORIDE 0.9% 1,000 ML IV SCH (23:45)
[2018-03-19] MEDS: METRONIDAZOLE 500mg IVPB 500 MG/100 ML BAG IV SCH ×3 (03:51→16:49)
[2018-03-19] MEDS ORDERED: METRONIDAZOLE 500mg IVPB 500 MG/100 ML BAG IV ONE ×2 (04:50→08:37)
--- NOTE | 2018-03-19 05:46 | EKG ---
Test Date: 2018-03-18 Test Time: 19:43:07 Photograph Retoucher: NORAH MEASUREMENT RESULTS: Intervals: Rate: 72 ME: 120 QRSD: 84 QT: 382 QTc: 418 [place]: P: 51 ME: 120 QRS: 50 T: 25 INTERPRETIVE STATEMENTS: Normal sinus rhythm Normal ECG No previous ECG available for comparison Electronically Signed On 03-19-18 05:45:34 ANDROID PROGRAMMER by Zuhair Castañeda
[2018-03-19 05:49] LABS: Albumin 2.9 g/dL (3.4-5.0); Bilirubin Total 0.3 mg/dL (0.2-1.0); Potassium 3.5 mmol/L (3.5-5.1); Protein, Total 6.7 g/dL (6.4-8.2)
[2018-03-19 05:53] LABS: Absolute Lymphocytes (CBC) 1.3 K/uL (0.7-4.9); Absolute Monocytes 0.6 K/uL (0.1-1.3); Absolute Neutrophil 8.2 K/uL (1.8-8.0); Basophils % 0.5 % (0-1.3); Eosinophils % 0.4 % (0-4.4); Hematocrit 34.8 % (36.0-45.0); Lymphocytes % 12.7 % (15.3-44.8); MCH 29.5 pg (27.0-35.0); MCV 86.7 fL (80-100); MPV 9.5 fL (7.6-11.3); Monocytes % 5.7 % (3.3-12.3); RBC Red Blood Cell Count 4.01 M/uL (3.86-4.86)
--- NOTE | 2018-03-19 07:16 | RAD REPORT ---
EXAM DESCRIPTION: RAD - Chest Single View - 03/18/2018 9:45 pm CLINICAL HISTORY: Left-sided chest pain, left-sided upper abdomen pain COMPARISON: None. TECHNIQUE: AP portable chest image was obtained 2129 hours . FINDINGS: Lungs are clear. Heart and vasculature are normal. No measurable pleural effusion and no p neumothorax. No acute bony abnormality seen. No acute aortic findings suspected. IMPRESSION: No acute cardiopulmonary process.
[2018-03-19] MEDS ORDERED: CIPROFLOXACIN 400mg IV 400 MG/200 ML BAG IV ONE (08:37)
[2018-03-19] MEDS: CIPROFLOXACIN 400mg IV 400 MG/200 ML BAG IV SCH ×2 (09:00→20:08)
--- NOTE | 2018-03-19 09:40 | RAD REPORT ---
EXAM DESCRIPTION: US - Abdomen Exam Limited - 03/19/2018 8:09 am CLINICAL HISTORY: Abdominal pain. COMPARISON: None. FINDINGS: The gallbladder wall is not thickened. A gallstone is not seen. The biliary tree is normal caliber. IMPRESSION: Unremarkable gallbladder ultrasound.
[2018-03-19] MEDS: NA CHLORIDE 0.9% 1,000 ML IV SCH ×3 (09:45→20:09)
[2018-03-19] MEDS: CYCLOBENZAPRINE 10 MG TAB PO SCH ×3 (12:43→20:09)
[2018-03-19] MEDS: KETOROLAC 30 MG/ML INJ IV PRN ×3 (13:53→20:13)
--- NOTE | 2018-03-19 21:36 | PN ---
Date of Progress Note: 03/19/2018 Subjective: The patient was seen and examined. Chart reviewed and case discussed with RN. Family a t the bedside. Treatment plan explained. All questions answered. Medications: List reviewed. Physical Examination: Vital Signs: Temperature 97.8, heart rate 78, blood pressure 118/62, respirations 16, O2 100% on johnathan m air. General: Awake, alert, oriented x3, ill-appearing female, morbidly obese. CV: S1, S2. No murmurs. Regular rate and rhythm. Peripheral pulses present. Respiratory: Clear to auscultation bilaterally. No wheezing or stridor. No use of accessory muscle s. Gastrointestinal: Abdomen is soft. Mild tenderness to palpation in the left upper quadrant. No gua rding or rigidity. Bowel sounds positive. Extremities: No clubbing, cyanosis, or edema. Neurologic: Nonfocal. Laboratory Data: Sodium 139, potassium 3.5, chloride 108, CO2 25, BUN 8, creatinine 0.8, glucose 96, calcium 7.7. WBC 10.1. H and H 11.8 and 34.8. Platelets 207, neutrophils 80%. UA is negative. C . diff assay and stool cultures pending. Fecal leukocyte stain shows few WBCs. Abdominal ultrasound shows unremarkable gallbladder ultrasound. CT scan abdomen and pelvis personally reviewed shows a c ontrast-enhanced CT abdomen pelvis showing no significant or suspicious finding. A few small mesente delta lymph nodes are present in the right lower quadrant. No bulky lymphadenopathy. Significance of the lymph node is doubtful given the patient's left-sided symptoms. Assessment: A 37-year-old female with: 1.Left upper quadrant abdominal pain. Unclear etiology, may be related to viral or bacterial gastro enteritis. Fecal leukocyte stain is positive. We will follow up on stool cultures and clostridium d ifficile assay. Continue current treatment for now. Advance diet to clear liquids. The patient was able to tolerate clear liquids, however, did have some nausea. We will try full liquids for dinner and advance as tolerated. The patient did have episode of diarrhea in the ER. 2.Morbid obesity. Counseled. 3.Carpal tunnel syndrome. 4.Gastrointestinal and deep vein thrombosis prophylaxis with PPI and SCDs. Plan: Continue Toradol for pain control, IV fluids, symptomatic treatment. Continue IV antibiotics. Likely discharge in the next 24 to 48 hours depending on clinical response. SA/MODL Voice ID: [id number] Report ID: [id number]
[2018-03-20] MEDS: METRONIDAZOLE 500mg IVPB 500 MG/100 ML BAG IV SCH ×3 (00:09→09:30)
[2018-03-20] MEDS: NA CHLORIDE 0.9% 1,000 ML IV SCH (04:49)
[2018-03-20] MEDS: CIPROFLOXACIN 400mg IV 400 MG/200 ML BAG IV SCH ×2 (09:00→09:30)
[2018-03-20] MEDS: CYCLOBENZAPRINE 10 MG TAB PO SCH ×2 (09:31→12:10)
[2018-03-20] MEDS ORDERED: NA CHLORIDE 0.9% 1,000 ML IV SCH (10:00)
--- NOTE | 2018-03-20 12:13 | CON ---
Date of Consultation: 03/19/2018 This patient was seen in ER. Reason For Service: Left lower quadrant pain. History Of Present Illness: This is the case of a 37-year-old patient, comes complaining of abdomina l pain for several days, 2-3 days, in the left lower quadrant. She denies eating anything out of the usual. Denies any family member sick at home. Denies any traveling out of the country. Past Medical History: Morbid obesity. Past Surgical History: None. Allergies: AUGMENTIN. Social History: She does not smoke. She does not drink alcohol. Review of Systems: Ten points, otherwise unremarkable. Physical Examination: General: The patient is awake and alert. HEENT: Pupils are equal and reactive, anicteric. Neck: Supple. Chest: Clear. Heart: S1, S2. Abdomen: Soft and depressible. No guarding or rebound or peritoneal signs. Mild left lower quadran t tenderness. Pelvic and Rectal: Deferred. Extremities: Good capillary refill. Laboratory Data: Blood work shows WBC count of 11.3, hemoglobin of 12.5, neutrophils 80.9. INR 0.92 . Potassium 3.7. CAT scan of abdomen and pelvis, some mesenteric inflammation, otherwise unremarkab le, by Dr. Wang. Assessment: A 37-year-old patient, abdominal pain, unknown origin. I noticed the patient has ultras ound ordered. I want to make sure that this does not deviate us from the main concern of the patient , which is pain of the left lower quadrant even if she has gallstones. A asp net developer evaluati on either here or as an outpatient is suggested. The etiology is not completely clear of this pain. At this moment, there is no surgical intervention planned. MANUELA/AISHA Voice ID: [id number] Report ID: [id number]
[2018-03-20] MEDS ORDERED: metroNIDAZOLE 500 MG TABLET PO SCH (14:00)
[2018-03-20] MEDS ORDERED: CIPROFLOXACIN HCL 500 MG TAB PO SCH (21:00)
--- NOTE | 2018-03-21 08:15 | DS ---
Date of Discharge: 03/20/2018 Consultants: Dr. Chavez with General Surgery. Discharge Diagnoses: 1. Left upper quadrant abdominal pain, unclear etiology, likely viral bacterial gastroenteritis. 2. Morbid obesity. 3. Carpal tunnel syndrome. 4. Neutrophilic leukocytosis, resolved. Hospital Course: The patient in a 37-year-old female who was admitted to the hospital for left upper quadrant abdominal pain. The patient's workup revealed white count of 11,000. CT was negative. Did not show any free air, perforation , bowel wall thickening, or dilatation. Did have some mesenteric lymph nodes on the right side; however, appendix was unremarkable. Ultrasound of the abdomen was also done, which did not show any gallbladder abnormalities. The patient did report some diarrhea and stool studies were obtained. C diff negative. However, patient's diarrhea has resolved. The patient's white count also normalized. She was well hydrated. She was able to tolerate a clear liquid diet which was advanced. The patient did well over the course of the hospital stay. The patient was then evaluated by Dr. Chavez, General Surgery. Did not recommend any surgical intervention at this time. The patient will likely need outpatient GI followup. The patient was then cleared for discharge and will be sent home in a stable condition. Activity: As tolerated. Medications: As per medication reconciliation list. Finish a course of antibiotics with Cipro and Flagyl. Followup: Follow up with primary care physician in 2-3 days. Establish care with GI in 2-4 weeks. Return to ER for worsening condition. Diet: [place] diet. Physical Examination: General: Awake, alert, oriented. No acute distress. CV: S1, S2. No murmurs. Respiratory: Moving air well bilaterally. Abdomen: Soft. No tenderness to palpation. Positive bowel sounds. No guarding or rigidity. Extremities: No clubbing, cyanosis, or edema. Neuro: Nonfocal. SA/MODL Voice ID: [id number] Report ID: [id number] MILLICENT
== END 2018-03-20 16:00 | disposition home or self-care (01) ==
LOC: ER 19:00 → ERHOLD 22:46 → 2ND 03-19 12:09
PROVIDERS: ADMIT Internal Medicine; ATTEND Internal Medicine
DX: R10.12 Left upper quadrant pain (principal); E66.01 Morbid (severe) obesity due to excess calories; Z68.42 Body mass index [BMI] 45.0-49.9, adult; G56.00 Carpal tunnel syndrome, unspecified upper limb; D72.829 Elevated white blood cell count, unspecified; R19.7 Diarrhea, unspecified
CPT/HCPCS: 36415; 71045; 74177; 76705; 80048; 80053; 80076; 81003; 81025; 83690; 83735; 83880; 84484; 85025; 85610; 87045; 87046; 87493; 89055; 93005; 96361; 96365; 96368; 96375; 99285; G0378; J0744; J2405; J7030; Q9967